=== PATIENT | male | born 1960 | race Caucasian/White ===

== ENCOUNTER → 2017-05-26 | Outpatient (CLI) | payer OTHER | LOC: COL.RAD 13:13 | DX: M50.321 Other cervical disc degeneration at C4-C5 level (principal); M48.02 Spinal stenosis, cervical region; R20.0 Anesthesia of skin; W01.0XXA Fall on same level from slipping, tripping and stumbling without subsequent striking against object, initial encounter ==

== ENCOUNTER → 2017-07-31 | Outpatient (REF) | LOC: ZLAB.WCH 17:48 | DX: Z01.89 Encounter for other specified special examinations (principal) | CPT/HCPCS: G0103 ==

== ENCOUNTER → 2018-08-03 | Outpatient (REF) | LOC: ZLAB.WCH 16:16 | DX: Z01.89 Encounter for other specified special examinations (principal) | CPT/HCPCS: G0103 ==